=== PATIENT | female | born 1985 | race Caucasian/White ===

== ENCOUNTER 2024-03-26 20:04 | Emergency (ER) | payer BC, SELFPAY ==
[2024-03-26 20:07] VITALS: BP 160/88
--- NOTE | 2024-03-26 20:51 | ED.GENMED ---
History of Present Illness
General
Chief Complaint: Allergic Reaction
Source: patient and family
Exam Limitations: none
Time Seen by Provider: 03/26/24 20:15
Nursing documentation reviewed up to this point in time: agreed with
Travel History
Have you had any contact with someone who has COVID-19?: No
Do you have any symptoms of coronavirus? Fever > 100 degrees, chills, cough, shortness of breath, sore throat, loss of taste or smell, muscle aches, or headache?: No
History of Present Illness
History of Present Illness:
38-year-old female presents to the emergency department for evaluation of rash. Patient had bilateral mastectomy 03/17/2024; she was treated postoperatively with clindamycin and had been taking Benadryl as needed incisional itching. She finished
the clindamycin 2 days ago. She says that last night she started to develop generalized pruritus and has since developed rash across the torso and extending to the face and upper extremities, back. She has taken 2 doses of Benadryl today that has
helped a bit with the itching but given progression of rash came to the emergency room for assessment. She denies any facial swelling, tongue swelling, sensation of throat swelling. Denies any shortness of breath or wheezing. Denies any abdominal
pain, nausea, vomiting. She denies any other complaints. She denies any other complaints. She has a previous listed allergy to penicillin but no known history of allergy to clindamycin she says. She denies any other new medications/drugs.
Review of Systems
Review of Systems
All Other Systems: ROS reviewed and negative except as documented in HPI and ROS
Constitutional: Denies fever
EENT: Reports other (Denies throat swelling or tongue swelling); Denies sore throat
Respiratory: Denies cough or trouble breathing
Cardiac: Denies chest pain
ABD/GI: Denies abdominal pain, nausea, vomiting or diarrhea
: Denies flank pain
Musculoskeletal: Denies neck pain or back pain
Skin: Reports itching and rash
Neurological: Denies dizzy
Phy Exam
Physical Exam
Physical Exam:
General: Awake, alert; no acute distress
Head: Normocephalic, atraumatic
Eyes: Conjunctiva normal, EOMI, pupils equal round reactive to light bilaterally
Throat: Airway intact, handling secretions, no oral lesions, no tongue swelling, no lip swelling or cracking of the lips
Neck: Trachea midline, supple without meningismus
Lungs: Clear to auscultation bilaterally, no wheezing, rales, rhonchi
Heart: Regular rate and rhythm, no murmurs, gallops, or rubs
Neuro: Cranial nerves grossly intact, speech fluid
Skin: Patient has morbilliform rash on back, chest, anterior neck, face and extending to the proximal upper extremities; spares the palms and soles of the feet and in fact lower extremities have no rash; no raised lesions or pustules, no bulla, no
sloughing of the skin
Extremities: Warm and well-perfused
Scores
Heart Failure Risk
Heart Failure Risk Score: Not Applicable
Heart Score for Chest Pain Patients
STEMI patient?: Not applicable
Withdrawal Assessment of Alcohol
Withdrawal Assessment Completed?: Not applicable
Course
Orders/Labs/Results
Orders:
Orders
03/26/24 20:46
Prednisone [Deltasone] 50 mg PO NOW STA
03/26/24 20:49
MethylPREDNISolone PF [Solu-Medrol Pf] 125 mg IV NOW STA
03/26/24 21:07
Complete Blood Count/With Diff Urgent
Comprehensive Metabolic Panel Urgent
03/26/24 22:07
Diphenhydramine [Benadryl] 25 mg IV NOW STA
Famotidine [Pepcid] 20 mg IV NOW STA
Abnormal Lab Results
03/26/24
21:07
RBC 3.83 L 10^6/uL
(4.20-5.40)
Hgb 11.5 L g/dL
(12.0-16.0)
Hct 32.9 L %
(37.0-47.0)
Total Protein 6.2 L g/dl
(6.3-8.2)
03/26/24 21:07
03/26/24 21:07
Vital Signs
Initial and Last Documented VS:
Initial Vital Signs
Temp Pulse Resp BP Pulse Ox
36.7 C 113 16 160/88 99
03/26/24 20:07 03/26/24 20:07 03/26/24 20:07 03/26/24 20:07 03/26/24 20:07
Last Documented Vital Signs
Temp Pulse Resp BP Pulse Ox
36.7 C 113 16 160/88 98
03/26/24 20:07 03/26/24 20:07 03/26/24 20:07 03/26/24 20:07 03/26/24 21:08
MDM/Problems Addressed
Differential Diagnosis Includes:
Drug rash, DRESS syndrome, erythema multiforme
MDM/Problems Addressed:
38-year-old female presents for evaluation of pruritic morbilliform rash that she has developed over the past 24 hours in the setting of recent course of clindamycin. Fortunately she completed course 2 days ago. She has no breathing difficulties,
no facial swelling, no GI symptoms. Symptoms not consistent with anaphylaxis. Suspect that this is likely a drug rash. She has no fever or systemic symptoms to suggest dress but will check basic labs to evaluate cell differential, LFTs and renal
function. Will treat with a steroid, Benadryl as needed itching.
Labs reviewed: CBC shows marginal anemia otherwise unremarkable�notably normal eosinophils, normal neutrophils. CMP no clinically significant abnormalities�notably normal creatinine and LFTs. Suspect likely drug rash. Will discharge on oral
steroid with Pepcid Benadryl as needed. She is already finished the course of clindamycin she will avoid this in the future. Follow-up with her primary doctor. Spoke about return precautions all questions answered.
*Pulse Oximetry
Patient hypoxic: no
*Critical Care Note
Total Time (30-74mins, 75-104mins- exclusive of procedures): Not Applicable
Data Reviewed
Source: patient and family
ED Attending Note
-
Portions of this chart may have been created with voice recognition software.� Occasional wrong word or��sound alike� substitutions may have occurred due to the inherent limitations of voice recognition software.
Discharge Plan
Departure
Patient with high blood pressure during this ER visit?: Yes
Discharge Problem:
Drug rash, Hypertension
Instructions: Skin Rash ED
Prescriptions:
New
prednisone 50 mg tablet
50 mg PO DAILY Qty: 4 0RF
diphenhydramine HCl [Benadryl Allergy] 25 mg tablet
25 mg PO TID PRN (Reason: itching) Qty: 20 0RF
famotidine [Pepcid] 20 mg tablet
20 mg PO DAILY Qty: 20 0RF
Referrals:
Aaron Schwarz MD [Family Provider] - Follow up in 5-7 days
Activity Restrictions/Additional Instructions:
Thank you for visiting the Emergency Department at [facility].
1. Please schedule a follow up appointment as directed. Call first thing tomorrow morning to make an appointment.
2. If indicated, please take your medications as instructed and indicated on discharge paperwork.
3. If any of your symptoms do not improve, or persist, or become more severe within 6-12 hours, please return to the emergency department for further care.
4. Please return to the emergency department if you develop a headache, neck pain/stiffness, fever greater than 100.4F, chest pain, shortness of breath, persistent nausea, vomiting, slurred speech, difficulty walking, numbness/tingling, weakness,
signs of infection or any other symptoms that are worrisome to you.
Please call [phone] if you have any questions.
Interventions
Interventions:
*Risk Screen - Suicide Last Done: 03/26/24 20:07
*General Assessment Last Done: 03/26/24 20:07
*Neglect/Abuse Screening Last Done: 03/26/24 20:07
*ED COVID-19 Vaccine History Last Done: 03/26/24 21:07
ED- Cardiac Assessment Last Done: 03/26/24 21:08
ED- Pulmonary Assessment Last Done: 03/26/24 21:08
ED-Skin Assessment Last Done: 03/26/24 21:08
Discharge Date and Time
Print Language: BENINESE
[2024-03-26] MEDS: SOLU-MEDROL PF 125 MG IV (21:05)
[2024-03-26 21:08] VITALS: BMI 29.6
[2024-03-26 21:21] LABS: % Basophils 0.3 % (0-2); % Eosinophils 2.2 % (0-6); % Immature Granulocytes 0.3 % (0-0.5); % Lymphocytes 36.7 % (20.5-51.1); % Monocytes 8.1 % (1.7-9.3); % Neutrophils 52.4 % (42.2-75.2); Absolute Eosinophils 0.2 10^3/uL (0-0.7); Absolute Lymphocytes 2.8 10^3/uL (1.2-3.4); Absolute Monocytes 0.6 10^3/uL (0.1-0.6); Hematocrit 32.9 % (37.0-47.0); Hemoglobin 11.5 g/dL (12.0-16.0); Mean Corpuscular Volume 85.9 fL (81.0-99.0); Mean Platelet Volume 9.4 fL (7.4-10.4); Nucleated Red Blood Cells % 0 %; Platelet Count 322 10^3/uL (130-400); Red Blood Cell Count 3.83 10^6/uL (4.20-5.40); White Blood Cell Count 7.7 10^3/uL (4.8-10.8)
[2024-03-26 21:44] LABS: ALT (SGPT) 11 U/L (0-35); AST (SGOT) 18 U/L (14-36); Albumin 3.6 g/dl (3.5-5.0); Alkaline Phosphatase 48 U/L (38-126); Blood Urea Nitrogen 8 mg/dl (7-17); Calcium 8.7 mg/dl (8.4-10.2); Carbon Dioxide 24 mmol/L (22-30); Chloride 105 mmol/L (98-107); Estimated Creatinine Clearance > 125 ml/min; Glucose 76 mg/dl (70-99); Potassium 3.7 mmol/L (3.5-5.1); Sodium 135 mmol/L (135-145); Total Bilirubin 0.4 mg/dl (0.2-1.3); Total Protein 6.2 g/dl (6.3-8.2); eGFR > 60.00
[2024-03-26] MEDS: BENADRYL 25 MG IV (22:11)
[2024-03-26] MEDS: PEPCID 20 MG IV (22:13)
[2024-03-26 22:21] VITALS: BP 105/75
[2024-03-26] MEDS: ATARAX 25 MG PO (23:00)
[2024-03-26 23:35] VITALS: BP 103/71
== END 2024-03-26 23:36 | disposition home or self-care (01) ==
LOC: EMR 20:04
PROVIDERS: EMERGENCY PHYSICIAN Emergency Medicine; FAMILY PHYSICIAN Internal Medicine
DX: L27.0 Generalized skin eruption due to drugs and medicaments taken internally (principal); I10 Essential (primary) hypertension; Z88.0 Allergy status to penicillin; Z90.13 Acquired absence of bilateral breasts and nipples
CPT/HCPCS: 99283; 80053; 85025